=== PATIENT | female | born 1975 | race Caucasian/White ===

== ENCOUNTER 2022-04-16 08:30 | Outpatient (CLI) | payer OTHER, SELFPAY ==
--- NOTE | ~2022-04-16 | MMUS_ITS ---
EXAMINATION: MM diagnostic enrike BI w sally, US breast LT limited HISTORY: Palpable lump in the lower outer quadrant of the left breast TECHNIQUE: Craniocaudal, mediolateral, and mediolateral oblique 3-D tomosynthesis images of the phoebe ts were performed and synthetic 2-D images were generated. CAD analysis was submitted and interpreted . High resolution limited left breast ultrasound was performed. COMPARISON: None, baseline BREAST PARENCHYMAL COMPOSITION: The breasts are heterogeneously dense, which may obscure small masses . FINDINGS: MAMMOGRAPHIC FINDINGS: There is no suspicious mass, calcification, or architectural distortion malignancy. There has be en no suspicious interval change. No mammographic correlate is identified for the reported palpable a bnormality of the left breast. ULTRASOUND: There is a 6 mm x 2 mm oval, circumscribed, parallel, hypoechoic mass with a central hyperechoic comp onent at the 3:00 location 1 cm from the nipple, suggestive of an intramammary lymph node. There is a 9 mm x 4 mm oval, circumscribed, parallel, complex cystic and solid mass at the 6:00 location 2 cm f rom the nipple with posterior acoustic enhancement and central vascularity at the 6:00 location 2 cm from the nipple. There is a 3 mm x 2 mm oval, circumscribed, parallel, hypoechoic mass with no installation helper ior features or internal vascularity at the 5:00 location 4 cm from the nipple. There is a 6 mm x 2 m m oval, circumscribed, parallel, hypoechoic mass at the 6:00 location 5 cm from the nipple. IMPRESSION: 1. Probably benign left breast masses. 2. Recommend 6 month follow-up left diagnostic mammogram and ultrasound. BI-RADS category 3, probably benign findings. Reviewed, dictated and finalized at location A. IMPRESSION: 1. Probably benign left breast masses. 2. Recommend 6 month follow-up left diagnostic mammogram and ultrasound. BI-RADS category 3, probably benign findings.
== END 2022-04-16 08:31 ==
PROVIDERS: PCP Physician Assistant; Visit Provider Nurse Practitioner Obstetrics & Gynecology
DX: N64.4 Mastodynia (principal); N63.25 Unspecified lump in the left breast, overlapping quadrants
CPT/HCPCS: 76642; 77062; 77066; G0279

== ENCOUNTER 2022-05-15 07:54 | Outpatient (CLI) | payer OTHER, SELFPAY ==
[2022-05-15 08:21] LABS: Hematocrit 40.3 % (37.0-47.0); Hemoglobin 13.2 g/dL (12.0-15.0)
== END 2022-05-15 07:55 | disposition home or self-care (01) ==
LOC: ANHSURGERY 07:58
PROVIDERS: Anesthesiology; PCP Physician Assistant; Visit Provider Obstetrics & Gynecology
DX: D25.9 Leiomyoma of uterus, unspecified (principal); D64.9 Anemia, unspecified; Z01.818 Encounter for other preprocedural examination
CPT/HCPCS: 36415; 85014; 85018; 86850; 86900; 86901

== ENCOUNTER 2022-05-16 01:18 | Day surgery (SDC) | payer OTHER, SELFPAY ==
[2022-05-09 10:56] VITALS: BMI 38.9
--- NOTE | 2022-05-09 11:10 | PC.NURSE ---
Report to the Outpatient Waiting Room, entrance under the green pavilion located off [facility], at time 6:00 on date 05/16/22. OR Time: 7:30. - You and your visitor will be asked a series of questions to screen for COVID 19 for your protection. - Only one visitor is allowed at this time. - The patient visitor is requested to leave or wait in car when not with patient. - A mask is required within the hospital. Patients may have clear liquids (water, carbonated beverages, clear teas, apple juice) until 3 hours prior to surgery (4:30) with a maximum of 20 ounces. - No food from midnight until time of surgery Take the following medications with a SIP of water the morning of surgery: NONE Medications to discontinue per physician: N/A Date to take last dose: N/A Please no make-up, nail lebanese, hairspray, perfume, deodorant, or body powder the day of surgery. No jewelry (including any body piercings) or valuables the day of surgery, leave them at home. Please take a shower or bath the night before, or the morning of, surgery with an antibacterial soap. Wear comfortable, loose fitting clothing. - Jewelry must be removed prior to entering the operating room. Rings and piercings that are not removed may be cut off. - The hospital will not accept responsibility for valuables. - Please leave all valuables, including medications, at home the day of surgery. If you are going home after surgery, a licensed dedicated regional driver must drive you home. - NO public transportation without another adult. - We recommend that an adult stay with you for 24 hours following discharge. - We also recommend that you do not drive, make important decision, drink alcoholic beverages, or take any drugs that were not prescribed by your health care provider for at least 24 hours after your discharge time. Follow any additional instructions given to you from your surgeon. If you or anyone in your household have experienced Covid symptoms in the past week, please notify your surgeon or the nurse liaison at the phone number below for possible testing. Telephone instructions given to PT - REX ANDREA and asked if any additional questions and then verbalized understanding. Patient advised to call surgeon office or pre surgery nurse liaison [phone] if any additional questions.
--- NOTE | 2022-05-15 09:20 | P.PNAN_ITS ---
Anes - Initial Pre Proc Eval Procedure: Operation Date: 05/16/22 07:30 Proposed Procedures p Total Laparoscopic Hysterectomy with Bilateral Salpingo-Oophorectomy - Sanchez Kline MD Date/Time: 05/15/22 09:20 Surgeon: Sanchez Kline MD Pre Op Diagnosis: uterine leiomyoma Patient Data Age: 46 Gender: F Height: 1.59 m Weight: 98 kg Allergies Allergy/AdvReac Type Severity Reaction Status Date / Time No Known Allergies Allergy Verified 05/09/22 10:55 Home Medications Medication Instructions Recorded Confirmed Type estradiol 1 mg tablet 1 mg PO DAILY #30 tabs 05/17/22 Rx oxycodone-acetaminophen 5 mg-325 1 tablet PO Q4H PRN pain #25 tabs 05/17/22 Rx mg tablet Patient hx anesthesia problems: none Family hx anesthesia problems: none Results Review: All pre-operative results and documents have been reviewed as part of the pre- operative evaluation. [facility] Past Medical History Medical History (Updated 05/17/22 @ 07:32 by Sanchez Kline MD) Asthma Social History Social History Smoking status: Never smoker Alcohol intake: current Alcohol use details: RARE Substance use: never Substance use type: does not use Living arrangements: with family Gender identity (if verbalized by the patient): Female Sexual Orientation (if Verbalized by the Patient): Straight or Heterosexual Spiritual care concerns: No Anes - Eval Final PreProcedure Day of Procedure 05/15/22 09:20 Patient weight: obese Heart: regular rate and rhythm Lungs: clear to auscultation Airway: Mallampati scale class II Neurological: alert and oriented Last oral intake: >/= 8 hours ASA classification: II Emergent: no Anesthetic plan: proceed Anesthesia type and monitoring: general ETT and standard monitoring Results Review: All pre-operative results and documents have been reviewed as part of the pre- operative evaluation. Informed Consent: The patient's anesthetic plan and its attendant risks and benefits were dis cussed with the patient/family/POA. Questions were solicited and answers provided to the satisfaction of the patient/family/POA.
[2022-05-16] VITALS (10 sets, daily range): BP systolic 101–126; BP diastolic 53–78; PULSE 49–80; RESP 12–18; TEMP 36.2–37.1; O2SAT 96–100
[2022-05-16] MEDS: ACETAMINOPHEN 500 MG TABLET 1000 MG PO (06:34)
[2022-05-16] MEDS: KETOROLAC 15 MG/ML VIAL (*BKC) IV PUSH (06:35)
[2022-05-16] MEDS: LACTATED RINGERS 1,000 ML 30 ML IV CONT ×2 (06:47→09:37)
--- NOTE | 2022-05-16 07:08 | WPDHPUPDATE1 ---
History and Physical Update Update Date/Time: 05/16/22 07:08 History and Physical has been reviewed, including an updated exam of the patient. There are NO changes in the patient's condition. Risks, benefits, and alternatives have been discussed and questions answered. Patient agrees to proceed with procedure.
[2022-05-16] MEDS: ceFAZolin 2 GM/D5W 50 ML 2 GM/50 ML BAG IVPB (07:26)
[2022-05-16] MEDS: ceFAZolin SODIUM 1 GM VIAL (07:28)
--- NOTE | 2022-05-16 09:00 | W.PM.PROC2 ---
Procedure Note - Detailed Date of Procedure 05/16/22 Pre-op Diagnosis uterine leiomyoma, menorrhagia Post-op Diagnosis Same Procedure Performed Total laparoscopic hysterectomy and bilateral salpingo-oophorectomy. Surgeon Sanchez Kline MD Anesthesia General Indications Myoma, menorrhagia Findings Enlarged uterus with multiple fibroids, normal-appearing ovaries. Otherwise normal pelvis Description of Procedure This patient was taken to the operating room. She was prepped and draped in the dorsal lithotomy position after induction of general anesthesia. The uterine manipulator and Ricky cup were placed. This was done with a speculum and tenaculum. The speculum was placed. The cervix was grasped with a tenaculum. The stay sutures were placed at 3 and 9:00 a.m.. The stay sutures of 0 Vicryl were brought through the appropriately sized Ricky cup. The tip of the MANDI manipulator was placed in the intrauterine cavity. The cup was slid into place around the cervix and into the fornices. It was locked into place. The sutures were then wrapped around the handle and tied under tension. A 5 mm skin incision was made in the left upper quadrant the abdomen. A 5 mm trocar was inserted into the intrauterine cavity under direct visualization of the scope. Pneumoperitoneum was achieved. A left lower quadrant 11 mm incision was made with scalpel. An 11 mm trocar was inserted into the anterior abdominal cavity under direct visualization the scope. A 5 mm infraumbilical incision was made with a scalpel and a 5 mm trocar was inserted the intra-abdominal cavity under direct visualization of the scope. Bilateral ureteral lysis was performed. This was done from the pelvic brim down to the uterine artery. This was done with careful dissection using sharp and blunt dissection. The infundibulopelvic ligaments were isolated after identification of the ureters bilaterally. These infundibulopelvic ligaments were cauterized and transected with LigaSure cautery. The para ovarian tissue was cauterized and transected with LigaSure cautery bilaterally. Moving around the ovary into the broad ligament the tissue was cauterized transected with LigaSure cautery. The round ligaments were cauterized transected with LigaSure cautery this was all done in a bilateral fashion. In a stepwise fashion along the lateral aspects of the uterus the round ligament and broad ligaments were cauterized transected down to the level of the uterine arteries. A bladder flap was created in the bladder was moved distally to the end of the cervix and over the Ricky cup. The bilateral uterine arteries were cauterized and transected. Colpotomy was then performed. In a circumferential fashion the vagina was transected using unipolar cautery. The incision was made down on the Ricky cup. The uterus, cervix, fallopian tubes and ovaries were taken out through the vagina. A pneumo occluder was placed in the vagina. The vaginal cuff was closed with a 0 V lock suture in a running fashion. The pelvis was irrigated with copious amounts antibiotic irrigation. The ureters were again examined and found to be intact and flowing freely under the uterine arteries into the bladder. The bladder was intact. It was examined directly. The vagina was irrigated with Betadine solution after removal of the Pneumo occluder. The patient was taken to recovery room. She was stable condition. Sponge lap and needle counts were correct x2. Estimated Blood Loss 150 Drains Yes Packing No Pathology Yes Complications No immediate complications Condition Stable Disposition Floor
[2022-05-16] MEDS: fentaNYL CITRATE INJ (*CRX) 100 MCG/2 ML VIAL 25 MCG IV PUSH ×4 (09:22→09:54)
[2022-05-16] MEDS: KETOROLAC 30 MG/ML VIAL (*BKC) IV PUSH ×2 (10:47→17:16)
[2022-05-16] MEDS: DEXTROSE 5%/0.45% SOD CHL 1,000 ML 125 ML (10:55)
[2022-05-16] MEDS: DEXTROSE 5%/0.45% SOD CHL 1,000 ML 125 ML IV CONT (11:00)
[2022-05-16] MEDS: HYDROcodone/acetaminophen (*CRX) 10-325 MG TABLET 1 TAB PO (13:13)
[2022-05-16] MEDS: SIMETHICONE 80 MG TAB.CHEW (13:16)
[2022-05-16] MEDS: HYDROcodone/acetaminophen (*CRX) 5-325 MG TABLET 1 TAB PO (17:16)
[2022-05-16] MEDS: SIMETHICONE 80 MG TAB.CHEW PO (17:16)
[2022-05-17 00:50] VITALS: BP 105/56; PULSE 71; RESP 16; TEMP 36.4; O2SAT 98
[2022-05-17] MEDS: HYDROcodone/acetaminophen (*CRX) 10-325 MG TABLET 1 TAB PO (01:06)
[2022-05-17 05:00] VITALS: BP 122/73; PULSE 80; RESP 16; TEMP 36.9; O2SAT 99
[2022-05-17] MEDS: IBUPROFEN 600 MG TABLET PO (05:21)
[2022-05-17] MEDS: HYDROcodone/acetaminophen (*CRX) 5-325 MG TABLET 1 TAB PO ×2 (05:23→09:48)
--- NOTE | 2022-05-17 07:29 | PM.GYNPNOP ---
MACHINIST CLASS B - A/P Postoperative Procedures: Procedures Operation Date: 05/16/22 07:30 Actual Procedure Side Surgeon p Total Laparoscopic Hysterectomy with Bilateral Salpingo-Oophorectomy Bilateral Sanchez Kline MD Postoperative day: 1 Postoperative status: doing well Postoperative plan: see orders Time Spent With Patient Time: Total time spent is greater than 50% in coordination of care (as documented) at patient's floor/unit and/or counseling patient: Time with patient: less than 15 minutes MACHINIST CLASS B- PN:Subj Post-Op Subjective Date/time seen: 05/17/22 07:29 Subjective: patient reports feeling better, patient has no complaints and pain is well controlled Exam Const: General: healthy appearing, comfortable and no acute distress Resp: Auscultation: clear to auscultation bilaterally, no rales, no rhonchi and no wheezes Cardio: Rate: regular rate Heart sounds: no click, no murmurs and no rubs GI: Inspection: non-distended Auscultation: normal bowel sounds Extrem: General: normal to inspection, no pedal edema and no calf tenderness MACHINIST CLASS B - PN: Obj Data Vital Signs Vital Signs: Vital Signs - 24 hr 05/16/22 09:10 05/16/22 09:25 05/16/22 09:40 Temperature 97.3 F L Pulse Rate 60 49 L 50 L Respiratory Rate 14 14 12 Blood Pressure 103/53 L 101/62 112/62 Pulse Oximetry 99 99 96 Oxygen Delivery Simple Face Mask Simple Face Mask Simple Face Mask Oxygen Flow Rate 8 8 8 05/16/22 09:55 05/16/22 10:20 05/16/22 12:55 Temperature 97.2 F L 97.8 F Pulse Rate 63 57 L 68 Respiratory Rate 16 16 18 Blood Pressure 114/70 107/57 L 117/70 Pulse Oximetry 97 99 98 Oxygen Delivery Room Air Oxygen Flow Rate 05/16/22 10:20 05/16/22 14:30 05/16/22 17:30 Temperature Pulse Rate 68 68 Respiratory Rate 18 18 Blood Pressure Pulse Oximetry 98 98 Oxygen Delivery Room Air Room Air Room Air Oxygen Flow Rate 05/16/22 19:45 05/17/22 00:50 05/16/22 20:10 Temperature 98.7 F 97.6 F Pulse Rate 80 71 Respiratory Rate 14 16 Blood Pressure 120/78 105/56 L Pulse Oximetry 98 98 Oxygen Delivery Room Air Oxygen Flow Rate 05/17/22 00:10 05/17/22 05:00 05/17/22 05:00 Temperature 98.5 F Pulse Rate 80 Respiratory Rate 16 Blood Pressure 122/73 Pulse Oximetry 99 Oxygen Delivery Room Air Room Air Oxygen Flow Rate 05/16/22 20:35 Temperature Pulse Rate 59 L Respiratory Rate 16 Blood Pressure 105/64 Pulse Oximetry 99 Oxygen Delivery Oxygen Flow Rate Intake/Output Intake/Output: Intake & Output 05/14/22 05/15/22 05/16/22 05/17/22 23:59 23:59 23:59 23:59 Intake Total 2200 2480 Output Total 950 2025 Balance 1250 455 Meds/Results Medications: Active Medications Generic Name Dose Route Start Last Admin Trade Name Freq PRN Reason Stop Dose Admin Hydrocodone Bitart/Acetaminophen 1 tab 05/16/22 10:08 05/17/22 05:23 Hydrocodone/Acetaminophen (*Crx) 5-325 Mg Tablet PO 1 tab Q3H PRN Administration Pain Rated 5 or Less Hydrocodone Bitart/Acetaminophen 1 tab 05/16/22 10:08 05/17/22 01:06 Hydrocodone/Acetaminophen (*Crx) 10-325 Mg Tablet PO 1 tab Q3H PRN Administration Pain Rated 6 or Greater Ibuprofen 600 mg 05/16/22 10:08 05/17/22 05:21 Ibuprofen 600 Mg Tablet PO 600 mg Q6H PRN Administration Cramping Ketorolac Tromethamine 30 mg 05/16/22 10:08 05/16/22 17:16 Ketorolac 30 Mg/Ml Vial (*Bkc) IV PUSH 05/21/22 10:07 30 mg Q6H PRN Administration Pain Rated 4-6 Naloxone HCl 0.1 mg 05/16/22 10:08 Naloxone Hcl 0.4 Mg/Ml Vial IV PUSH Q2M PRN Respiratory rate less than 10 Ondansetron HCl 4 mg 05/16/22 10:08 Ondansetron Inj 4 Mg/2 Ml Vial IV PUSH Q6H PRN Nausea And Vomiting Simethicone 80 mg 05/16/22 16:03 05/16/22 17:16 Simethicone 80 Mg Tab.Chew PO 80 mg Q2HR PRN Administration gas pain
[2022-05-17 07:50] VITALS: BP 105/55; PULSE 78; RESP 18; TEMP 37.3; O2SAT 100
[2022-05-17 09:30] VITALS: BP 122/76; PULSE 79; RESP 20
--- NOTE | 2022-05-17 11:10 | WPDANESPN ---
Anes - Prog Note Post-Op Date/Time: 05/17/22 11:10 Cardiovascular status: normal Respiratory status: normal Airway patency: baseline Mental status: baseline Vital Signs: Last Vital Signs Temp 99.1 F 05/17/22 07:50 Pulse 78 05/17/22 07:50 Resp 18 05/17/22 07:50 BP 105/55 L 05/17/22 07:50 Pulse Ox 100 05/17/22 07:50 O2 Del Method Room Air 05/17/22 05:00 O2 Flow Rate 8 05/16/22 09:40 Pain Score (VAS): 0 I/O: Intake & Output 05/16/22 05/17/22 05/17/22 23:59 07:59 15:59 Intake Total 1000 2480 Output Total 5 100 Balance 1000 455 -100 Post-procedural complaints: none Patient Feedback: Patient satisfied with anesthetic care.
== END 2022-05-17 14:54 | disposition home or self-care (01) ==
LOC: ANHSURGERY 05:58 → ANHOB2 10:12
PROVIDERS: PCP Physician Assistant; Visit Provider Obstetrics & Gynecology
PROC: 0UT9FZZ Resection of Uterus, Via Natural or Artificial Opening With Percutaneous Endoscopic Assistance (ICD-10-PCS; CPT 58571; principal; 2022-05-16 07:30)
DX: N92.0 Excessive and frequent menstruation with regular cycle (principal); N80.0 Endometriosis of uterus; D25.1 Intramural leiomyoma of uterus; D25.2 Subserosal leiomyoma of uterus; N83.10 Corpus luteum cyst of ovary, unspecified side; E66.9 Obesity, unspecified; Z68.38 Body mass index [BMI] 38.0-38.9, adult
CPT/HCPCS: 58571; 36415; 85014; 85018; 86850; 86900; 86901; 88307; 99199; A9270; J0690; J1100; J1885; J2250; J2270; J2405; J2704; J3010; J7030; J7120

== ENCOUNTER 2024-01-04 07:43 | Outpatient (CLI) | payer OTHER, SELFPAY ==
--- NOTE | ~2024-01-04 | XR_ITS ---
EXAMINATION: XR sacrum coccyx min 2V INDICATION: Sacral back pain TECHNIQUE: Three views of the sacrum and coccyx are obtained. COMPARISON: None available FINDINGS: Bone alignment is normal. There is no acute fracture. There appears to be an old healed fra cture of the left superior pubic ramus. No abnormal sclerosis or erosion of the sacroiliac joints laura ntified. There are phleboliths of the left pelvis. IMPRESSION: 1. No acute osseous abnormality. Reviewed, dictated and finalized at location F. IGERATOR ROOM CLERK
--- NOTE | ~2024-01-04 | XR_ITS ---
EXAMINATION: XR lumbar spine 2-3V DATE: 01/04/2024 08:16 INDICATION: Sacral back pain TECHNIQUE: AP and lateral views of the lumbar spine are obtained. COMPARISON: None. FINDINGS: Bone alignment is normal. There is no fracture. There is mild loss of intervertebral disc s pace height at L5-S1. The vertebral body heights are maintained. There is mild facet joint osteoarthr itis of the lower lumbar spine. IMPRESSION: 1. Mild lumbar spondylosis without acute findings. Reviewed, dictated and finalized at location F. ATTENDANT
== END 2024-01-04 07:44 | disposition home or self-care (01) ==
LOC: ANHIMG 07:48
PROVIDERS: PCP Physician Assistant; Visit Provider Physician Assistant
DX: M43.06 Spondylolysis, lumbar region (principal)
CPT/HCPCS: 72100; 72220

== ENCOUNTER 2024-02-19 07:30 | Outpatient (RCR) | payer OTHER, SELFPAY ==
--- NOTE | 2024-01-22 09:04 | OPREHPOC ---
Outpatient Therapy Plan of Care This is a Multidisciplinary Plan of Care that may contain components documented by all disciplines (PT, OT, and ST.) PT Problem 1 PT Problem #1 Knowledge Deficit PT Goal 1 Goal 1* indep with HEP 2* correct shoulder position with exercises PT Problem 2 PT Problem #2 Pain PT Goal 1 Goal 1* pt report pain at worst rating of 4/10 2* self assessment Quick DASH score of 30% limitation in activity PT Problem 3 PT Problem #3 Impaired Strength PT Goal 1 Goal increase strength of R shoulder-scapular complex, to improve use of R arm for work, home and self care tasks: 1* pt stand with correct shoulder position/ not rounded 2* standing R shoulder flexion with 3# hand wt to 100' x 5 reps 3* bilateral UE box with 20# lift waist/floor height 3x
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
--- NOTE | 2024-05-20 08:42 | PCPTNOTE ---
DISCHARGE REPORT Mrs. Ferrer has received 5 PT sessions, from Jan 22 to February 18. She then stopped attending therapy. Discharge PT; the goals were not addressed.
== END 2024-04-21 23:59 | disposition home or self-care (01) ==
LOC: ANHPT 07:30
PROVIDERS: PCP Physician Assistant; Visit Provider Physician Assistant
DX: S46.911D Strain of unspecified muscle, fascia and tendon at shoulder and upper arm level, right arm, subsequent encounter (principal)
CPT/HCPCS: 97014; 97110; 97140; 97161; 97530; G0283

== ENCOUNTER 2024-05-01 08:05 | Outpatient (CLI) | payer OTHER, SELFPAY ==
--- NOTE | ~2024-05-01 | XR_ITS ---
Right Shoulder Technique: AP and axillary views were obtained. Clinical History: Pain Findings: No fracture or dislocation is seen. Osseous alignment is anatomic. The glenohumeral and acr omioclavicular joint spaces are preserved. Soft tissues are unremarkable. Impression: Unremarkable right shoulder radiographs. Reviewed, dictated and finalized at [facility]. Impression: Unremarkable right shoulder radiographs.
== END 2024-05-01 08:06 | disposition home or self-care (01) ==
PROVIDERS: PCP Physician Assistant; Visit Provider Physician Assistant
DX: M25.511 Pain in right shoulder (principal)
CPT/HCPCS: 73030

== ENCOUNTER 2024-05-31 07:30 | Outpatient (CLI) | payer OTHER, SELFPAY ==
--- NOTE | ~2024-05-31 | MR_ITS ---
EXAMINATION: MR shoulder RT wo con DATE: 05/31/2024 08:31 INDICATION: Right shoulder pain TECHNIQUE: Magnetic resonance imaging (MRI) of the right shoulder was performed without intravenous c ontrast. Sequences included axial PD-weighted FS FSE, coronal oblique PD-weighted FS FSE, coronal obl ique T2-weighted FS FSE, sagittal PD-weighted FS FSE, and sagittal T1-weighted SE. COMPARISON: None. FINDINGS: Coracoacromial arch: The acromion undersurface is curved in morphology (type II) with lateral downsloping. The coracoacrom ial ligament is normal. There is mild acromioclavicular osteoarthritis. There is asymmetric prominent subarticular cystic erosive change and marrow edema at the lateral head of the right clavicle sugges tive of distal clavicular osteolysis. Rotator cuff: The supraspinatus, infraspinatus and teres minor tendons are normal. The subscapularis tendon is norm al. Normal rotator cuff muscle bulk and signal. Biceps tendon, glenoid labrum and glenohumeral cartilage: Long head of the biceps tendon is normal. Glenoid labrum is normal. Glenohumeral cartilage is normal. Fluid: Physiologic amount of fluid in the glenohumeral joint and biceps tendon sheath. No loose osteochondr al bodies. No abnormal increased fluid in the subacromial/subdeltoid bursa to suggest bursitis. Bones: Aside from at the distal clavicle there is normal marrow signal. No fracture or pathologic marrow rep lacing process. IMPRESSION: 1. Mild right acromioclavicular osteoarthritis but with disproportionate and asymmetric subarticular cystic or cirrhosis of change and prominent surrounding marrow edema at the lateral head of the right clavicle. This is most suggestive of distal clavicular osteolysis which can be sequela of prior trau ma or repetitive microtrauma classically described in the setting of weight lifting. Reviewed, dictated and finalized at location A. IMPRESSION: 1. Mild right acromioclavicular osteoarthritis but with disproportionate and as ymmetric subarticular cystic or cirrhosis of change and prominent surrounding m arrow edema at the lateral head of the right clavicle. This is most suggestive of distal clavicular osteolysis which can be sequela of prior trauma or repetit anette microtrauma classically described in the setting of weight lifting.
== END 2024-05-31 07:31 | disposition home or self-care (01) ==
LOC: ANHIMG 07:33
PROVIDERS: PCP Physician Assistant; Visit Provider Physician Assistant
DX: M19.011 Primary osteoarthritis, right shoulder (principal)
CPT/HCPCS: 73221